=== PATIENT | female | born 1955 | race Native Hawaiian/Other Pacific Islander ===

== ENCOUNTER 2021-05-28 12:51 | Emergency (ER) | payer SELFPAY ==
[~2021-05-28] VITALS: Ht 157.5 cm; Wt 69.5 kg
[2021-05-28] MEDS ORDERED: HydrOXYzine PAMOATE 25 MG CAPSULE PO ONE (14:00)
[2021-05-28 14:02] VITALS: BP 134/69
== END 2021-05-28 14:30 | disposition home or self-care (01) ==
LOC: EMS 12:56
DX: R45.0 Nervousness (principal); R41.3 Other amnesia; E11.9 Type 2 diabetes mellitus without complications; F12.90 Cannabis use, unspecified, uncomplicated; F19.90 Other psychoactive substance use, unspecified, uncomplicated; F17.210 Nicotine dependence, cigarettes, uncomplicated; F31.9 Bipolar disorder, unspecified
CPT/HCPCS: 99283

== ENCOUNTER 2021-06-28 15:09 | Emergency (ER) | payer MEDICARE ==
[~2021-06-28] VITALS: Ht 160 cm; Wt 71.4 kg
[2021-06-28] MEDS ORDERED: INSULIN REGULAR, HUMAN 100 UNITS/ML IVP ONE (15:45)
[2021-06-28 16:12] LABS: BASOPHILS % (AUTO) 0.4 % (0.0-2.0); EOSINOPHILS % (AUTO) 1.5 % (1.0-6.0); HEMATOCRIT 37.9 % (36-46); HEMOGLOBIN 12.7 g/dL (12.0-16.0); LYMPHOCYTES # (AUTO) 2.5 K/uL (1.0-4.8); LYMPHOCYTES % (AUTO) 27.7 % (22.0-44.0); MEAN CORPUSCULAR HEMOGLOBIN 30.7 pg (26.0-34.0); MEAN CORPUSCULAR HGB CONC 33.6 G/dL (31.0-37.0); MEAN CORPUSCULAR VOLUME 91 fL (80-100); MONOCYTES # (AUTO) 0.1 K/uL (0.1-1.0); MONOCYTES % (AUTO) 1.4 % (2.0-9.0); NEUTROPHILS # (AUTO) 6.2 K/uL (1.8-7.7); PLATELET COUNT (AUTO) 368 K/uL (150-450); RED BLOOD CELL COUNT(AUTO) 4.15 MIL/uL (4.00-5.20); RED CELL DISTRIBUTION WIDTH 13.5 % (11.5-14.5)
[2021-06-28 16:26] LABS: ANION GAP 9 mmol/L (8-16); CALCIUM, TOTAL 8.6 mg/dL (8.8-10.5); CARBON DIOXIDE 30 mmol/L (22-29); CHLORIDE 102 mmol/L (98-107); CREATININE 0.77 mg/dL (0.60-1.30); GLOMERULAR FILTR. RATE CALC > 60 mL/min (>60); GLUCOSE,RANDOM 337 mg/dL (70-110); POTASSIUM 3.6 mmol/L (3.5-5.1); SODIUM SERUM 141 mmol/L (136-145); UREA NITROGEN, BLOOD 11 mg/dL (7-18)
[2021-06-28 16:30] LABS: ALANINE AMINOTRANSFERASE 21 U/L (12-78); ALBUMIN 2.8 g/dL (3.4-5.0); ALKALINE PHOSPHATASE 99 U/L (46-116); ASPARTATE AMINOTRANSFERASE 15 U/L (15-37); BILIRUBIN,TOTAL 0.3 mg/dL (0.1-1.0); TOTAL PROTEIN, SERUM 7.4 g/dL (6.4-8.2)
[2021-06-28 16:55] VITALS: BP 147/90
[2021-06-28 17:25] LABS: AMPHET/METH SCREEN,URINE POSITIVE (NEGATIVE); BARBITURATE SCREEN, URINE NEGATIVE (NEGATIVE); BENZODIAZEPINES SCREEN,URINE NEGATIVE (NEGATIVE); CANNABINOID SCREEN,URINE NEGATIVE (NEGATIVE); COCAINE SCREEN,URINE NEGATIVE (NEGATIVE); METHADONE SCREEN, URINE NEGATIVE (NEGATIVE); OPIATE SCREEN,URINE NEGATIVE (NEGATIVE)
[2021-06-28 17:27] LABS: PHENCYCLIDINE SCREEN,URINE NEGATIVE (NEGATIVE)
[2021-06-29 00:41] LABS: GLUCOSE,POINT OF CARE 169 MG/DL (70-110)
== END 2021-06-28 17:59 | disposition home or self-care (01) ==
LOC: EDBD → EMS 15:09
DX: E11.65 Type 2 diabetes mellitus with hyperglycemia (principal); F25.9 Schizoaffective disorder, unspecified; F15.10 Other stimulant abuse, uncomplicated; F32.9 Major depressive disorder, single episode, unspecified; F17.210 Nicotine dependence, cigarettes, uncomplicated; F12.90 Cannabis use, unspecified, uncomplicated; Z88.8 Allergy status to other drugs, medicaments and biological substances
CPT/HCPCS: 36415; 80053; 80307; 82962; 85025; 96374; 99283; G0480; J1815

== ENCOUNTER 2022-01-02 13:46 | Inpatient (IN) | payer MEDICARE ==
[~2022-01-02] VITALS: Ht 157.5 cm; Wt 66.1 kg
[2022-01-02 14:16] LABS: GLUCOSE,POINT OF CARE 166 MG/DL (70-110)
[2022-01-02 14:52] LABS: BASOPHILS % (AUTO) 0.4 % (0.0-2.0); EOSINOPHILS % (AUTO) 0.6 % (1.0-6.0); HEMATOCRIT 39.6 % (36-46); HEMOGLOBIN 13.6 g/dL (12.0-16.0); LYMPHOCYTES % (AUTO) 13.8 % (22.0-44.0); MEAN CORPUSCULAR HEMOGLOBIN 31.9 pg (26.0-34.0); MEAN CORPUSCULAR HGB CONC 34.2 G/dL (31.0-37.0); MEAN CORPUSCULAR VOLUME 93 fL (80-100); MONOCYTES % (AUTO) 6.9 % (2.0-9.0); NEUTROPHILS # (AUTO) 11.3 K/uL (1.8-7.7); NEUTROPHILS % (AUTO) 78.3 % (40.0-70.0); PLATELET COUNT (AUTO) 320 K/uL (150-450); RED BLOOD CELL COUNT(AUTO) 4.25 MIL/uL (4.00-5.20); RED CELL DISTRIBUTION WIDTH 14.8 % (11.5-14.5)
[2022-01-02 15:01] LABS: ANION GAP 11 mmol/L (8-16); CALCIUM, TOTAL 8.7 mg/dL (8.8-10.5); CARBON DIOXIDE 28 mmol/L (22-29); CHLORIDE 99 mmol/L (98-107); CREATININE 0.77 mg/dL (0.60-1.30); GLOMERULAR FILTR. RATE CALC > 60 mL/min (>60); GLUCOSE,RANDOM 169 mg/dL (70-110); POTASSIUM 3.7 mmol/L (3.5-5.1); SODIUM SERUM 138 mmol/L (136-145); UREA NITROGEN, BLOOD 8 mg/dL (7-18)
[2022-01-02 15:07] LABS: ALANINE AMINOTRANSFERASE 16 U/L (12-78); ALBUMIN 3.2 g/dL (3.4-5.0); ALKALINE PHOSPHATASE 113 U/L (46-116); ASPARTATE AMINOTRANSFERASE 13 U/L (15-37); BILIRUBIN,TOTAL 0.4 mg/dL (0.1-1.0)
[2022-01-02 16:40] LABS: AMPHET/METH SCREEN,URINE POSITIVE (NEGATIVE); BARBITURATE SCREEN, URINE NEGATIVE (NEGATIVE); BENZODIAZEPINES SCREEN,URINE NEGATIVE (NEGATIVE); CANNABINOID SCREEN,URINE NEGATIVE (NEGATIVE); COCAINE SCREEN,URINE NEGATIVE (NEGATIVE); METHADONE SCREEN, URINE NEGATIVE (NEGATIVE); OPIATE SCREEN,URINE NEGATIVE (NEGATIVE); PHENCYCLIDINE SCREEN,URINE NEGATIVE (NEGATIVE)
[2022-01-02] MEDS ORDERED: HALOPERIDOL 5 MG TABLET PO PRN (17:45)
[2022-01-02] MEDS ORDERED: ZOLPIDEM TARTRATE 10 MG TABLET PO PRN (17:45)
[2022-01-02] MEDS ORDERED: LORazepam 2 MG TABLET PO PRN (17:45)
[2022-01-02 19:35] LABS: COVID AG,FIA SOURCE NASOPHARYNGEAL
[2022-01-03 03:56] VITALS: BP 107/67
[2022-01-03] MEDS ORDERED: PNEUMOCOCCAL VACCINE POLYVALENT 0.5 ML VIAL [PPSV23] IM. ONE (04:30)
[2022-01-03 06:47] LABS: GLUCOMETER DEV NAME(LOC) BV2S.; GLUCOSE,POINT OF CARE 141 MG/DL (70-110)
[2022-01-03 08:05] VITALS: BP 123/73
[2022-01-03 08:41] VITALS: BP 123/73
[2022-01-03] MEDS ORDERED: HydrOXYzine PAMOATE 50 MG CAPSULE PO PRN (10:15)
[2022-01-03] MEDS ORDERED: ACETAMINOPHEN 325 MG TABLET PO PRN (10:15)
[2022-01-03] MEDS ORDERED: MAGNESIUM HYDROXIDE SUSPENSION 30 ML UDCUP PO PRN (10:15)
[2022-01-03] MEDS ORDERED: PROMETHAZINE HCL 25 MG TABLET PO PRN (10:15)
[2022-01-03] MEDS ORDERED: GuaiFENesin/D-METHORPHAN [SUGAR-FREE] 200-20MG/10 ML SYRUP UDCUP PO PRN (10:15)
[2022-01-03] MEDS ORDERED: TUBERCULIN, PURIFIED PROTEIN DERIVATIVE 5 TU/0.1 ML SYRINGE ID ONE (10:15)
[2022-01-03] MEDS ORDERED: QUEtiapine FUMARATE 100 MG TABLET PO PRN (10:15)
[2022-01-03] MEDS ORDERED: MAG HYDROX/AL HYDROX/SIMETH ES 30 ML SUSPENSION UDCUP PO PRN (10:15)
[2022-01-03] MEDS ORDERED: LOPERAMIDE HCL 2 MG CAPSULE PO PRN (10:15)
[2022-01-03] MEDS ORDERED: ARIPiprazole ER SUSPENSION 400 MG PRE-FILLED DUAL CHAMBER SYRINGE IM ONE (10:15)
[2022-01-03] MEDS: THIAMINE 100 MG TABLET PO SCH (16:07)
[2022-01-03 16:14] VITALS: BP 125/77
[2022-01-03] MEDS ORDERED: GLUCAGON,HUMAN RECOMBINANT 1 MG VIAL IM PRN (17:30)
[2022-01-03] MEDS: MELATONIN 5 MG TABLET PO SCH (20:11)
[2022-01-03] MEDS: ATORVASTATIN CALCIUM 20 MG TABLET PO SCH (20:11)
[2022-01-03] MEDS: INSULIN GLARGINE,HUM.REC.ANLOG 100 UNITS/ML SQ SCH (20:11)
[2022-01-03] MEDS: DIVALPROEX SODIUM 500 MG ER TABLET PO SCH (20:11)
[2022-01-03 20:45] LABS: GLUCOMETER DEV NAME(LOC) BV2S.; GLUCOSE,POINT OF CARE 191 MG/DL (70-110)
[2022-01-04 00:52] VITALS: BP 104/62
[2022-01-04 06:32] LABS: GLUCOMETER DEV NAME(LOC) BV2S.; GLUCOSE,POINT OF CARE 132 MG/DL (70-110)
[2022-01-04] MEDS: MetFORMIN HCL 500 MG TABLET PO SCH ×2 (07:02→16:15)
[2022-01-04 08:39] LABS: CHOL/HDL RATIO 3.8 (3.9-5.7); FREE T4 (FREE THYROXINE) 1.29 ng/dL (0.76-1.46); THYROID STIMULATING HORMONE 0.28 uIU/mL (0.36-3.74)
[2022-01-04 09:03] VITALS: BP 106/66
[2022-01-04] MEDS: FOLIC ACID 1 MG TABLET PO SCH (09:30)
[2022-01-04] MEDS: THIAMINE 100 MG TABLET PO SCH ×2 (09:30→16:15)
[2022-01-04] MEDS: MULTIVITAMINS WITH MINERALS, THERAPEUTIC TABLET PO SCH (09:30)
[2022-01-04] MEDS: NALTREXONE HCL 50 MG TABLET PO SCH (09:30)
[2022-01-04] MEDS: OMEGA-3/DHA/EPA/FISH OIL 1,000 MG CAPSULE PO SCH (09:30)
[2022-01-04] MEDS: ARIPiprazole 15 MG TABLET PO SCH (09:30)
[2022-01-04] MEDS: LISINOPRIL 20 MG TABLET PO SCH (09:31)
[2022-01-04 11:31] LABS: GLUCOMETER DEV NAME(LOC) BV2S.; GLUCOSE,POINT OF CARE 130 MG/DL (70-110)
[2022-01-04 16:08] VITALS: BP 116/70
[2022-01-04] MEDS: INSULIN LISPRO 100 UNITS/ML SQ PRN ×2 (16:23→20:11)
[2022-01-04 16:46] LABS: GLUCOMETER DEV NAME(LOC) BV2S.; GLUCOSE,POINT OF CARE 189 MG/DL (70-110)
[2022-01-04] MEDS: ATORVASTATIN CALCIUM 20 MG TABLET PO SCH (20:00)
[2022-01-04] MEDS: DIVALPROEX SODIUM 500 MG ER TABLET PO SCH (20:00)
[2022-01-04] MEDS: MELATONIN 5 MG TABLET PO SCH (20:00)
[2022-01-04] MEDS: INSULIN GLARGINE,HUM.REC.ANLOG 100 UNITS/ML SQ SCH (20:10)
[2022-01-04 20:36] LABS: GLUCOMETER DEV NAME(LOC) BV2S.; GLUCOSE,POINT OF CARE 151 MG/DL (70-110)
[2022-01-05 00:14] VITALS: BP 136/91
[2022-01-05 06:51] LABS: GLUCOMETER DEV NAME(LOC) BV2S.; GLUCOSE,POINT OF CARE 119 MG/DL (70-110)
[2022-01-05] MEDS: MetFORMIN HCL 500 MG TABLET PO SCH ×2 (07:05→16:21)
[2022-01-05 08:20] VITALS: BP 152/73
[2022-01-05] MEDS: NALTREXONE HCL 50 MG TABLET PO SCH (08:24)
[2022-01-05] MEDS: THIAMINE 100 MG TABLET PO SCH ×2 (08:24→16:22)
[2022-01-05] MEDS: OMEGA-3/DHA/EPA/FISH OIL 1,000 MG CAPSULE PO SCH (08:24)
[2022-01-05] MEDS: FOLIC ACID 1 MG TABLET PO SCH (08:24)
[2022-01-05] MEDS: MULTIVITAMINS WITH MINERALS, THERAPEUTIC TABLET PO SCH (08:25)
[2022-01-05] MEDS: LISINOPRIL 20 MG TABLET PO SCH (08:25)
[2022-01-05] MEDS: ARIPiprazole 15 MG TABLET PO SCH (08:25)
[2022-01-05 11:41] LABS: GLUCOMETER DEV NAME(LOC) BV2S.; GLUCOSE,POINT OF CARE 139 MG/DL (70-110)
[2022-01-05 16:09] VITALS: BP 127/77
[2022-01-05] MEDS: INSULIN LISPRO 100 UNITS/ML SQ PRN (16:27)
[2022-01-05 16:47] LABS: GLUCOMETER DEV NAME(LOC) BV2S.; GLUCOSE,POINT OF CARE 245 MG/DL (70-110)
[2022-01-05] MEDS: DIVALPROEX SODIUM 500 MG ER TABLET PO SCH (21:09)
[2022-01-05] MEDS: MELATONIN 5 MG TABLET PO SCH (21:09)
[2022-01-05] MEDS: ATORVASTATIN CALCIUM 20 MG TABLET PO SCH (21:09)
[2022-01-05] MEDS: INSULIN GLARGINE,HUM.REC.ANLOG 100 UNITS/ML SQ SCH (21:24)
[2022-01-05 21:37] LABS: GLUCOMETER DEV NAME(LOC) BV2S.; GLUCOSE,POINT OF CARE 122 MG/DL (70-110)
[2022-01-05 21:37] LABS: GLUCOMETER DEV NAME(LOC) BV2S.; GLUCOSE,POINT OF CARE 80 MG/DL (70-110)
[2022-01-06 00:11] VITALS: BP 123/71
[2022-01-06] MEDS: MetFORMIN HCL 500 MG TABLET PO SCH ×2 (06:27→16:43)
[2022-01-06 06:36] LABS: GLUCOMETER DEV NAME(LOC) BV2S.; GLUCOSE,POINT OF CARE 74 MG/DL (70-110)
[2022-01-06 08:14] VITALS: BP 137/85
[2022-01-06] MEDS: OMEGA-3/DHA/EPA/FISH OIL 1,000 MG CAPSULE PO SCH (08:19)
[2022-01-06] MEDS: ARIPiprazole 15 MG TABLET PO SCH (08:19)
[2022-01-06] MEDS: THIAMINE 100 MG TABLET PO SCH ×2 (08:19→16:43)
[2022-01-06] MEDS: NALTREXONE HCL 50 MG TABLET PO SCH (08:19)
[2022-01-06] MEDS: LISINOPRIL 20 MG TABLET PO SCH (08:20)
[2022-01-06] MEDS: FOLIC ACID 1 MG TABLET PO SCH (08:20)
[2022-01-06] MEDS: MULTIVITAMINS WITH MINERALS, THERAPEUTIC TABLET PO SCH (08:20)
[2022-01-06] MEDS: INSULIN LISPRO 100 UNITS/ML SQ PRN ×2 (11:16→20:17)
[2022-01-06 11:26] LABS: GLUCOMETER DEV NAME(LOC) BV2S.; GLUCOSE,POINT OF CARE 249 MG/DL (70-110)
[2022-01-06] MEDS ORDERED: NALT50TA PO (14:39)
[2022-01-06] MEDS ORDERED: OMEG-108 PO (14:39)
[2022-01-06] MEDS ORDERED: ARIP400S3 IM (14:39)
[2022-01-06] MEDS ORDERED: ARIP15TA27 PO (14:39)
[2022-01-06] MEDS ORDERED: MELA5TAB40 PO (14:39)
[2022-01-06] MEDS ORDERED: DIVA-80 PO (14:39)
[2022-01-06 16:05] VITALS: BP 144/65
[2022-01-06 17:01] LABS: GLUCOMETER DEV NAME(LOC) BV2S.; GLUCOSE,POINT OF CARE 97 MG/DL (70-110)
[2022-01-06] MEDS: ATORVASTATIN CALCIUM 20 MG TABLET PO SCH (20:15)
[2022-01-06] MEDS: MELATONIN 5 MG TABLET PO SCH (20:15)
[2022-01-06] MEDS: DIVALPROEX SODIUM 500 MG ER TABLET PO SCH (20:15)
[2022-01-06] MEDS: INSULIN GLARGINE,HUM.REC.ANLOG 100 UNITS/ML SQ SCH (20:17)
[2022-01-06 20:30] LABS: GLUCOMETER DEV NAME(LOC) BV2S.; GLUCOSE,POINT OF CARE 159 MG/DL (70-110)
[2022-01-07 00:01] VITALS: BP 136/72
[2022-01-07 06:41] LABS: GLUCOMETER DEV NAME(LOC) BV2S.; GLUCOSE,POINT OF CARE 95 MG/DL (70-110)
[2022-01-07] MEDS: MetFORMIN HCL 500 MG TABLET PO SCH ×2 (06:41→16:14)
[2022-01-07] MEDS: ARIPiprazole 15 MG TABLET PO SCH (08:16)
[2022-01-07] MEDS: NALTREXONE HCL 50 MG TABLET PO SCH (08:16)
[2022-01-07] MEDS: THIAMINE 100 MG TABLET PO SCH ×2 (08:17→16:14)
[2022-01-07] MEDS: FOLIC ACID 1 MG TABLET PO SCH (08:17)
[2022-01-07] MEDS: LISINOPRIL 20 MG TABLET PO SCH (08:17)
[2022-01-07] MEDS: MULTIVITAMINS WITH MINERALS, THERAPEUTIC TABLET PO SCH (08:17)
[2022-01-07] MEDS: OMEGA-3/DHA/EPA/FISH OIL 1,000 MG CAPSULE PO SCH (08:17)
[2022-01-07 08:31] VITALS: BP 154/74
[2022-01-07 11:26] LABS: GLUCOMETER DEV NAME(LOC) BV2S.; GLUCOSE,POINT OF CARE 91 MG/DL (70-110)
[2022-01-07 16:09] VITALS: BP 138/77
[2022-01-07 16:51] LABS: GLUCOMETER DEV NAME(LOC) BV2S.; GLUCOSE,POINT OF CARE 110 MG/DL (70-110)
[2022-01-07] MEDS ORDERED: METF-1211 PO (17:00)
[2022-01-07] MEDS ORDERED: LISI-894 PO (17:00)
[2022-01-07] MEDS ORDERED: ATOR20TA65 PO (17:00)
[2022-01-07] MEDS ORDERED: INSLAN SQ (17:00)
[2022-01-07] MEDS: ATORVASTATIN CALCIUM 20 MG TABLET PO SCH (20:35)
[2022-01-07] MEDS: MELATONIN 5 MG TABLET PO SCH (20:35)
[2022-01-07] MEDS: DIVALPROEX SODIUM 500 MG ER TABLET PO SCH (20:35)
[2022-01-07] MEDS: INSULIN GLARGINE,HUM.REC.ANLOG 100 UNITS/ML SQ SCH (20:38)
[2022-01-07] MEDS: INSULIN LISPRO 100 UNITS/ML SQ PRN (20:38)
[2022-01-07 21:01] LABS: GLUCOMETER DEV NAME(LOC) BV2S.; GLUCOSE,POINT OF CARE 205 MG/DL (70-110)
[2022-01-08 01:11] VITALS: BP 134/79
[2022-01-08] MEDS: MetFORMIN HCL 500 MG TABLET PO SCH ×2 (06:18→16:15)
[2022-01-08 06:26] LABS: GLUCOMETER DEV NAME(LOC) BV2S.; GLUCOSE,POINT OF CARE 67 MG/DL (70-110)
[2022-01-08 06:51] LABS: GLUCOMETER DEV NAME(LOC) POC.BV
[2022-01-08 08:11] VITALS: BP 144/72
[2022-01-08] MEDS: OMEGA-3/DHA/EPA/FISH OIL 1,000 MG CAPSULE PO SCH (08:17)
[2022-01-08] MEDS: MULTIVITAMINS WITH MINERALS, THERAPEUTIC TABLET PO SCH (08:17)
[2022-01-08] MEDS: THIAMINE 100 MG TABLET PO SCH ×2 (08:17→16:16)
[2022-01-08] MEDS: FOLIC ACID 1 MG TABLET PO SCH (08:17)
[2022-01-08] MEDS: LISINOPRIL 20 MG TABLET PO SCH (08:17)
[2022-01-08] MEDS: ARIPiprazole 15 MG TABLET PO SCH (08:17)
[2022-01-08] MEDS: NALTREXONE HCL 50 MG TABLET PO SCH (08:17)
[2022-01-08 11:11] LABS: GLUCOMETER DEV NAME(LOC) BV2S.; GLUCOSE,POINT OF CARE 88 MG/DL (70-110)
[2022-01-08 16:08] VITALS: BP 154/83
[2022-01-08] MEDS: INSULIN LISPRO 100 UNITS/ML SQ PRN (16:35)
[2022-01-08 16:46] LABS: GLUCOMETER DEV NAME(LOC) BV2S.; GLUCOSE,POINT OF CARE 144 MG/DL (70-110)
[2022-01-08] MEDS: ATORVASTATIN CALCIUM 20 MG TABLET PO SCH (20:25)
[2022-01-08] MEDS: MELATONIN 5 MG TABLET PO SCH (20:25)
[2022-01-08] MEDS: DIVALPROEX SODIUM 500 MG ER TABLET PO SCH (20:25)
[2022-01-08 21:06] LABS: GLUCOMETER DEV NAME(LOC) BV2S.; GLUCOSE,POINT OF CARE 85 MG/DL (70-110)
[2022-01-08] MEDS: INSULIN GLARGINE,HUM.REC.ANLOG 100 UNITS/ML SQ SCH (21:07)
[2022-01-09 06:13] VITALS: BP 131/89
[2022-01-09 06:27] LABS: GLUCOMETER DEV NAME(LOC) BV2S.; GLUCOSE,POINT OF CARE 78 MG/DL (70-110)
[2022-01-09] MEDS: MetFORMIN HCL 500 MG TABLET PO SCH ×2 (06:58→16:12)
[2022-01-09 07:16] LABS: BASOPHILS % (AUTO) 0.4 % (0.0-2.0); EOSINOPHILS % (AUTO) 2.6 % (1.0-6.0); HEMATOCRIT 37.9 % (36-46); LYMPHOCYTES % (AUTO) 50.1 % (22.0-44.0); MEAN CORPUSCULAR HEMOGLOBIN 31.8 pg (26.0-34.0); MEAN CORPUSCULAR HGB CONC 34.3 G/dL (31.0-37.0); MEAN CORPUSCULAR VOLUME 93 fL (80-100); MONOCYTES # (AUTO) 0.4 K/uL (0.1-1.0); MONOCYTES % (AUTO) 5.1 % (2.0-9.0); NEUTROPHILS # (AUTO) 3.3 K/uL (1.8-7.7); NEUTROPHILS % (AUTO) 41.8 % (40.0-70.0); PLATELET COUNT (AUTO) 274 K/uL (150-450); RED CELL DISTRIBUTION WIDTH 14.3 % (11.5-14.5)
[2022-01-09 08:09] VITALS: BP 161/83
[2022-01-09] MEDS: OMEGA-3/DHA/EPA/FISH OIL 1,000 MG CAPSULE PO SCH (09:14)
[2022-01-09] MEDS: THIAMINE 100 MG TABLET PO SCH ×2 (09:14→16:11)
[2022-01-09] MEDS: NALTREXONE HCL 50 MG TABLET PO SCH (09:14)
[2022-01-09] MEDS: LISINOPRIL 20 MG TABLET PO SCH (09:14)
[2022-01-09] MEDS: FOLIC ACID 1 MG TABLET PO SCH (09:14)
[2022-01-09] MEDS: MULTIVITAMINS WITH MINERALS, THERAPEUTIC TABLET PO SCH (09:14)
[2022-01-09] MEDS: ARIPiprazole 15 MG TABLET PO SCH (09:14)
[2022-01-09 11:46] LABS: GLUCOMETER DEV NAME(LOC) BV2S.; GLUCOSE,POINT OF CARE 68 MG/DL (70-110)
[2022-01-09 12:11] LABS: GLUCOMETER DEV NAME(LOC) BV2S.; GLUCOSE,POINT OF CARE 167 MG/DL (70-110)
[2022-01-09 16:12] VITALS: BP 153/77
[2022-01-09] MEDS: INSULIN LISPRO 100 UNITS/ML SQ PRN (16:40)
[2022-01-09 17:06] LABS: GLUCOMETER DEV NAME(LOC) BV2S.; GLUCOSE,POINT OF CARE 193 MG/DL (70-110)
[2022-01-09] MEDS: INSULIN GLARGINE,HUM.REC.ANLOG 100 UNITS/ML SQ SCH (20:07)
[2022-01-09] MEDS: ATORVASTATIN CALCIUM 20 MG TABLET PO SCH (20:08)
[2022-01-09] MEDS: DIVALPROEX SODIUM 500 MG ER TABLET PO SCH (20:08)
[2022-01-09] MEDS: MELATONIN 5 MG TABLET PO SCH (20:08)
[2022-01-09 20:26] LABS: GLUCOMETER DEV NAME(LOC) BV2S.; GLUCOSE,POINT OF CARE 121 MG/DL (70-110)
[2022-01-10 01:00] VITALS: BP 146/73
[2022-01-10] MEDS: MetFORMIN HCL 500 MG TABLET PO SCH ×2 (06:51→17:10)
[2022-01-10 06:55] LABS: GLUCOMETER DEV NAME(LOC) BV2S.; GLUCOSE,POINT OF CARE 95 MG/DL (70-110)
[2022-01-10 08:23] VITALS: BP 137/72
[2022-01-10] MEDS: ARIPiprazole 15 MG TABLET PO SCH (09:29)
[2022-01-10] MEDS: LISINOPRIL 20 MG TABLET PO SCH (09:29)
[2022-01-10] MEDS: THIAMINE 100 MG TABLET PO SCH ×2 (09:29→17:10)
[2022-01-10] MEDS: FOLIC ACID 1 MG TABLET PO SCH (09:29)
[2022-01-10] MEDS: MULTIVITAMINS WITH MINERALS, THERAPEUTIC TABLET PO SCH (09:29)
[2022-01-10] MEDS: OMEGA-3/DHA/EPA/FISH OIL 1,000 MG CAPSULE PO SCH (09:29)
[2022-01-10] MEDS: NALTREXONE HCL 50 MG TABLET PO SCH (09:29)
[2022-01-10] MEDS: INSULIN LISPRO 100 UNITS/ML SQ PRN ×3 (11:30→20:47)
[2022-01-10 11:31] LABS: GLUCOMETER DEV NAME(LOC) BV2S.; GLUCOSE,POINT OF CARE 166 MG/DL (70-110)
[2022-01-10 16:19] VITALS: BP 134/60
[2022-01-10 16:56] LABS: GLUCOMETER DEV NAME(LOC) BV2X.2; GLUCOSE,POINT OF CARE 184 MG/DL (70-110)
[2022-01-10] MEDS: DIVALPROEX SODIUM 500 MG ER TABLET PO SCH (20:33)
[2022-01-10] MEDS: MELATONIN 5 MG TABLET PO SCH (20:33)
[2022-01-10] MEDS: ATORVASTATIN CALCIUM 20 MG TABLET PO SCH (20:34)
[2022-01-10 20:46] LABS: GLUCOMETER DEV NAME(LOC) BV2S.; GLUCOSE,POINT OF CARE 172 MG/DL (70-110)
[2022-01-10] MEDS: INSULIN GLARGINE,HUM.REC.ANLOG 100 UNITS/ML SQ SCH (20:48)
[2022-01-11 00:59] VITALS: BP 145/63
[2022-01-11] MEDS: MetFORMIN HCL 500 MG TABLET PO SCH ×2 (06:42→16:17)
[2022-01-11 06:50] LABS: GLUCOMETER DEV NAME(LOC) BV2S.; GLUCOSE,POINT OF CARE 73 MG/DL (70-110)
[2022-01-11 08:22] VITALS: BP 147/70
[2022-01-11] MEDS: OMEGA-3/DHA/EPA/FISH OIL 1,000 MG CAPSULE PO SCH (09:03)
[2022-01-11] MEDS: MULTIVITAMINS WITH MINERALS, THERAPEUTIC TABLET PO SCH (09:03)
[2022-01-11] MEDS: FOLIC ACID 1 MG TABLET PO SCH (09:03)
[2022-01-11] MEDS: NALTREXONE HCL 50 MG TABLET PO SCH (09:03)
[2022-01-11] MEDS: THIAMINE 100 MG TABLET PO SCH ×2 (09:04→16:17)
[2022-01-11] MEDS: ARIPiprazole 15 MG TABLET PO SCH (09:04)
[2022-01-11] MEDS: LISINOPRIL 20 MG TABLET PO SCH (09:04)
[2022-01-11 12:07] LABS: GLUCOMETER DEV NAME(LOC) BV2S.; GLUCOSE,POINT OF CARE 92 MG/DL (70-110)
[2022-01-11 16:13] VITALS: BP 148/76
[2022-01-11] MEDS ORDERED: GLUCAGON,HUMAN RECOMBINANT 1 MG VIAL SQ ONE (16:26)
[2022-01-11 16:56] LABS: GLUCOMETER DEV NAME(LOC) BV2S.; GLUCOSE,POINT OF CARE 138 MG/DL (70-110)
[2022-01-11] MEDS: MELATONIN 5 MG TABLET PO SCH (20:32)
[2022-01-11] MEDS: ATORVASTATIN CALCIUM 20 MG TABLET PO SCH (20:32)
[2022-01-11] MEDS: DIVALPROEX SODIUM 500 MG ER TABLET PO SCH (20:32)
[2022-01-11] MEDS: INSULIN LISPRO 100 UNITS/ML SQ PRN (20:34)
[2022-01-11] MEDS: INSULIN GLARGINE,HUM.REC.ANLOG 100 UNITS/ML SQ SCH (20:34)
[2022-01-11 21:26] LABS: GLUCOMETER DEV NAME(LOC) BV2S.; GLUCOSE,POINT OF CARE 179 MG/DL (70-110)
[2022-01-12 06:15] VITALS: BP 151/66
[2022-01-12 06:16] LABS: GLUCOMETER DEV NAME(LOC) BV2S.; GLUCOSE,POINT OF CARE 71 MG/DL (70-110)
[2022-01-12] MEDS: MetFORMIN HCL 500 MG TABLET PO SCH (06:44)
[2022-01-12 08:08] VITALS: BP 144/64
[2022-01-12] MEDS: THIAMINE 100 MG TABLET PO SCH (08:29)
[2022-01-12] MEDS: MULTIVITAMINS WITH MINERALS, THERAPEUTIC TABLET PO SCH (08:29)
[2022-01-12] MEDS: ARIPiprazole 15 MG TABLET PO SCH (08:29)
[2022-01-12] MEDS: OMEGA-3/DHA/EPA/FISH OIL 1,000 MG CAPSULE PO SCH (08:29)
[2022-01-12] MEDS: FOLIC ACID 1 MG TABLET PO SCH (08:29)
[2022-01-12] MEDS: NALTREXONE HCL 50 MG TABLET PO SCH (08:29)
[2022-01-12] MEDS: LISINOPRIL 20 MG TABLET PO SCH (08:29)
[2022-01-12 11:30] LABS: GLUCOMETER DEV NAME(LOC) BV2S.; GLUCOSE,POINT OF CARE 88 MG/DL (70-110)
[2022-01-31] MEDS ORDERED: ARIPiprazole ER SUSPENSION 400 MG PRE-FILLED DUAL CHAMBER SYRINGE IM SCH (09:00)
== END 2022-01-12 14:30 | disposition home or self-care (01) | DRG 885 ==
LOC: EMS 13:46 → B2S 01-03 00:03 → EDBD 01-03 00:03 → B2S 01-09 06:33
PROVIDERS: ADMIT Psychiatry & Neurology Psychiatry; ATTEND Psychiatry & Neurology Psychiatry
DX: F25.9 Schizoaffective disorder, unspecified (principal); F06.30 Mood disorder due to known physiological condition, unspecified; E03.9 Hypothyroidism, unspecified; E11.22 Type 2 diabetes mellitus with diabetic chronic kidney disease; F15.10 Other stimulant abuse, uncomplicated; Z20.822 Contact with and (suspected) exposure to COVID-19; E78.5 Hyperlipidemia, unspecified; F31.9 Bipolar disorder, unspecified; F41.9 Anxiety disorder, unspecified; I12.9 Hypertensive chronic kidney disease with stage 1 through stage 4 chronic kidney disease, or unspecified chronic kidney disease; J44.9 Chronic obstructive pulmonary disease, unspecified; R41.843 Psychomotor deficit; R47.81 Slurred speech; F12.10 Cannabis abuse, uncomplicated; F22 Delusional disorders; F17.210 Nicotine dependence, cigarettes, uncomplicated; N18.1 Chronic kidney disease, stage 1; D72.829 Elevated white blood cell count, unspecified; Z55.9 Problems related to education and literacy, unspecified; Z59.00 Homelessness unspecified; Z72.89 Other problems related to lifestyle; Z63.9 Problem related to primary support group, unspecified; Z65.3 Problems related to other legal circumstances; Z79.899 Other long term (current) drug therapy; Z82.49 Family history of ischemic heart disease and other diseases of the circulatory system; Z83.3 Family history of diabetes mellitus; Z86.16 Personal history of COVID-19; Z86.718 Personal history of other venous thrombosis and embolism; Z91.14 Patient's other noncompliance with medication regimen; Z91.19 Patient's noncompliance with other medical treatment and regimen; Z88.4 Allergy status to anesthetic agent; Z84.1 Family history of disorders of kidney and ureter; Z79.4 Long term (current) use of insulin; Z28.21 Immunization not carried out because of patient refusal
CPT/HCPCS: 80053; 80061; 80164; 82962; 83036; 84439; 84443; 85025; 86592; 90732; 99285; G0480; J0401; J1610; J1815; Q9967